=== PATIENT | male | born 1950 | race Caucasian/White ===

== ENCOUNTER 2018-05-15 21:29 | Emergency (ER) | payer OTHER ==
[2018-05-15 22:31] LABS: Absolute Lymphocytes (CBC) 1.3 K/uL (0.7-4.9); Absolute Monocytes 0.4 K/uL (0.1-1.3); Absolute Neutrophil 3.8 K/uL (1.8-8.0); Basophils % 0.7 % (0-1.3); Eosinophils % 3.7 % (0-4.4); Hematocrit 47.2 % (39.6-49.0); MPV 10.2 fL (7.6-11.3); Monocytes % 6.7 % (3.3-12.3); RBC Red Blood Cell Count 5.12 M/uL (4.33-5.43)
[2018-05-15 22:45] LABS: Protime INR 1.1
[2018-05-15 22:46] LABS: ALT/SGPT 29 U/L (12-78); AST/SGOT 19 U/L (15-37); Albumin 3.4 g/dL (3.4-5.0); Alkaline Phosphatase 121 U/L (45-117); BUN Blood Urea Nitrogen 11 mg/dL (7-18); Bicarbonate 30 mmol/L (21-32); Bilirubin Direct 0.2 mg/dL (0-0.2); Bilirubin Total 0.4 mg/dL (0.2-1.0); CKMB Creatine Kinase MB 1.6 ng/mL (0.3-3.6); Creatine Phosphokinase 137 U/L (39-308); Glucose Level 101 mg/dL (74-106); Lipase 94 U/L (73-393); Magnesium 2.3 mg/dL (1.8-2.4); NT PRO-BNP 32 pg/mL (<125); Potassium 3.7 mmol/L (3.5-5.1); Sodium Level 137 mmol/L (136-145); Troponin (Emerg Dept Use Only) < 0.02 ng/mL (0.0-0.045)
[2018-05-16 00:51] LABS: Urine Blood NEGATIVE (NEG); Urine Glucose NEGATIVE (NEG); Urine Protein NEGATIVE (NEG); Urine Specific Gravity 1.015 (1.005-1.030)
--- NOTE | 2018-05-16 01:02 | ER ---
Nurse's Notes [facility] Name: Ike Flowers Age: 67 yrs Sex: Male : 1950 Arrival Date: 05/15/2018 Time: 21:34 Bed 25 Private MD: Guru Arvizu E Diagnosis: Muscle weakness (generalized) Presentation: 05/15 21:55 Presenting complaint: Patient states: Feeling weakness in legs last 2 weeks and isn't tl2 walking as well. Had a fall today. c/o chronic back and knee pain. Transition of care: patient was not received from another setting of care. Onset of symptoms was May 03, 2018. Risk Assessment: Do you want to hurt yourself or someone else? Patient reports no desire to harm self or others. Initial Sepsis Screen: Does the patient meet any 2 criteria? No. Patient's initial sepsis screen is negative. Does the patient have a suspected source of infection? No. Patient's initial sepsis screen is negative. Care prior to arrival: None. 21:55 Method Of Arrival: Wheelchair tl2 21:55 Acuity: VALENTÍN 3 tl2 Triage Assessment: 21:56 General: Appears in no apparent distress. uncomfortable, Behavior is calm, cooperative, tl2 appropriate for age. Pain: Complains of pain in back, knees. Historical: - Allergies: 21:56 No Known Allergies; tl2 - Home Meds: 21:56 atorvastatin 80 mg Oral tab 1 tab once daily [Active]; gabapentin 800 mg Oral tab 1 tab tl2 3 times per day [Active]; losartan 50 mg Oral tab 1 tab once daily [Active]; primadone [Active]; - PMHx: 21:56 CVA; Hyperlipidemia; Hypertension; neuropathy; Parkinsons; tl2 - Immunization history:: Adult Immunizations up to date. - Social history:: Smoking status: Patient uses tobacco products, smokes one pack cigarettes per day. - Ebola Screening: : No symptoms or risks identified at this time. Screenin:57 Abuse screen: Denies threats or abuse. Nutritional screening: No deficits noted. tl2 Tuberculosis screening: No symptoms or risk factors identified. Fall Risk Fall in past 12 months (25 points). Assessment: 22:29 General: Appears in no apparent distress. Behavior is calm, cooperative. Pain: la1 Complains of pain in back. Neuro: Level of Consciousness is awake, alert, obeys commands, Oriented to person, place, time, situation. Cardiovascular: Capillary refill < 3 seconds Patient's skin is warm and dry. Respiratory: Airway is patent Respiratory effort is even, unlabored, Respiratory pattern is regular, symmetrical, Breath sounds are clear bilaterally. GI: No signs and/or symptoms were reported involving the gastrointestinal system. : No signs and/or symptoms were reported regarding the genitourinary system. Musculoskeletal: Reports Numbness/tingling mikie LE as an ongoing issue, reports frequent falls at home. 23:25 Reassessment: Patient appears in no apparent distress at this time. No changes from la1 previously documented assessment. Patient and/or family updated on plan of care and expected duration. Pain level reassessed. Vital Signs: 21:56 BP 110 / 74; Pulse 83; Resp 18; Temp 98.2; Pulse Ox 97% on R/A; Weight 77.11 kg; Height tl2 6 ft. 2 in. (187.96 cm); 23:31 BP 109 / 68; Pulse 75; Resp 18; Pulse Ox 96% on R/A; la1 21:56 Body Mass Index 21.83 (77.11 kg, 187.96 cm) tl2 ED Course: 21:34 Patient arrived in ED. es 21:35 Guru Arvizu MD is Private Physician. es 21:48 Mateo Lozada MD is Attending Physician. tw4 21:56 Triage completed. tl2 21:56 Arm band placed on right wrist. tl2 21:57 Patient has correct armband on for positive identification. Bed in low position. Call tl2 light in reach. Side rails up X 1. Adult w/ patient. 22:03 Donald Pinto, KERWIN is Primary Nurse. la1 22:24 XRAY Chest (1 view) In Process Unspecified. EDMS 22:30 No provider procedures requiring assistance completed. Inserted saline lock: 20 gauge la1 in left forearm, using aseptic technique. Blood collected. 22:50 CT Head Brain wo Cont In Process Unspecified. EDMS 03 00:59 Guru Arvizu MD is Referral Physician. tw4 01:07 IV discontinued, intact, bleeding controlled, No redness/swelling at site. Pressure la1 dressing applied. Administered Medications: No medications were administered Outcome: 01:01 Discharge ordered by . tw4 01:06 Discharged to home ambulatory. la1 01:06 Condition: stable 01:06 Discharge instructions given to patient, family, Instructed on discharge instructions, follow up and referral plans. Demonstrated understanding of instructions, follow-up care. 01:07 Patient left the ED. la1 Signatures: Dispatcher [employer] Alaina Garcia Lee RN RN la1 Esme Coyle RN RN tl2 Mateo Lozada, MD SIDHU tw4
--- NOTE | 2018-05-16 01:02 | EDPHYS ---
Physician Documentation [facility] Name: Ike Flowers Age: 67 yrs Sex: Male : 1950 Arrival Date: 05/15/2018 Time: 21:34 Bed 25 Private MD: Guru Arvizu E ED Physician Mateo Lozada HPI: 05/16 06:47 This 67 yrs old Male presents to ER via Wheelchair with complaints of tw4 FALLING,BACK PAIN,KNEE PAIN. 06:47 The patient presents with pain that is acute, and an injury. The symptoms are located tw4 in the low back. Onset: The symptoms/episode began/occurred today. The pain does not radiate. The problem was sustained during a fall, while standing. Severity of symptoms: At their worst the symptoms were moderate, in the emergency department the symptoms are unchanged. Historical: - Allergies: 05/15 21:56 No Known Allergies; tl2 - Home Meds: 21:56 atorvastatin 80 mg Oral tab 1 tab once daily [Active]; gabapentin 800 mg Oral tab 1 tab tl2 3 times per day [Active]; losartan 50 mg Oral tab 1 tab once daily [Active]; primadone [Active]; - PMHx: 21:56 CVA; Hyperlipidemia; Hypertension; neuropathy; Parkinsons; tl2 - Immunization history:: Adult Immunizations up to date. - Social history:: Smoking status: Patient uses tobacco products, smokes one pack cigarettes per day. - Ebola Screening: : No symptoms or risks identified at this time. ROS: 05/16 06:47 Constitutional: Negative for fever, chills, and weight loss, Eyes: Negative for injury, tw4 pain, redness, and discharge, Cardiovascular: Negative for chest pain, palpitations, and edema, Respiratory: Negative for shortness of breath, cough, wheezing, and pleuritic chest pain, Abdomen/GI: Negative for abdominal pain, nausea, vomiting, diarrhea, and constipation. MS/Extremity: Negative for injury and deformity, Skin: Negative for injury, rash, and discoloration, Neuro: Negative for headache, weakness, numbness, tingling, and seizure. Back: Positive for injury or acute deformity, pain at rest, Negative for decreased range of motion. Exam: 06:47 Constitutional: This is a well developed, well nourished patient who is awake, alert, tw4 and in no acute distress. Head/Face: Normocephalic, atraumatic. Chest/axilla: Normal chest wall appearance and motion. Nontender with no deformity. No lesions are appreciated. Cardiovascular: Regular rate and rhythm with a normal S1 and S2. No gallops, murmurs, or rubs. Normal PMI, no JVD. No pulse deficits. Respiratory: Lungs have equal breath sounds bilaterally, clear to auscultation and percussion. No rales, rhonchi or wheezes noted. No increased work of breathing, no retractions or nasal flaring. Abdomen/GI: Soft, non-tender, with normal bowel sounds. No distension or tympany. No guarding or rebound. No evidence of tenderness throughout. 06:47 MS/ Extremity: Pulses equal, no cyanosis. Neurovascular intact. Full, normal range of motion. Neuro: Awake and alert, GCS 15, oriented to person, place, time, and situation. Cranial nerves II-XII grossly intact. Motor strength 5/5 in all extremities. Sensory grossly intact. Cerebellar exam normal. Normal gait. 06:47 Back: pain, that is mild, ROM is normal. Vital Signs: 05/15 21:56 BP 110 / 74; Pulse 83; Resp 18; Temp 98.2; Pulse Ox 97% on R/A; Weight 77.11 kg; Height tl2 6 ft. 2 in. (187.96 cm); 23:31 BP 109 / 68; Pulse 75; Resp 18; Pulse Ox 96% on R/A; la1 21:56 Body Mass Index 21.83 (77.11 kg, 187.96 cm) tl2 MDM: 21:48 Patient medically screened. tw4 05/16 06:47 Data reviewed: vital signs, nurses notes. Counseling: I had a detailed discussion with tw4 the patient and/or guardian regarding: the historical points, exam findings, and any diagnostic results supporting the discharge/admit diagnosis, lab results. Special discussion: I discussed with the patient/guardian in detail that at this point there is no indication for admission to the hospital. It is understood, however, that if the symptoms persist or worsen the patient needs to return immediately for re-evaluation. 06:47 Differential diagnosis: Abdominal Aortic Aneurysm arthritis, Ligament Injury tw4 Pyelonephritis. Data interpreted: Pulse oximetry: Interpretation: normal. 05/15 21:57 Order name: Basic Metabolic Panel tw4 05/15 21:57 Order name: CBC with Diff tw4 05/15 21:57 Order name: LFT's tw4 05/15 21:57 Order name: Magnesium tw4 05/15 21:57 Order name: NT PRO-BNP tw4 05/15 21:57 Order name: PT-INR tw4 05/15 21:57 Order name: Troponin (emerg Dept Use Only) tw4 05/15 21:57 Order name: Basic Metabolic Panel tw05/15 21:57 Order name: CBC with Diff tw4 05/15 21:57 Order name: Ckmb tw4 05/15 21:57 Order name: CPK 05/15 21:57 Order name: Hepatic Function 05/15 21:57 Order name: Lipase tw05/15 21:57 Order name: Ptt, Activated tw05/15 21:57 Order name: XRAY Chest (1 view) 05/15 21:57 Order name: Cardiac monitoring; Complete Time: 22:36 05/15 21:57 Order name: EKG - Nurse/Tech; Complete Time: 22:36 05/15 21:57 Order name: IV Saline Lock; Complete Time: 22:37 05/15 21:57 Order name: Labs collected and sent; Complete Time: 22:37 05/15 21:57 Order name: O2 Per Protocol; Complete Time: 22:37 05/15 21:57 Order name: O2 Sat Monitoring; Complete Time: 22:37 05/15 21:57 Order name: CT Head Brain wo Cont 05/15 21:57 Order name: NPO; Complete Time: 22:36 05/15 21:57 Order name: Urine Dipstick-Ancillary (obtain specimen); Complete Time: 00:07 05/16 00:10 Order name: Urine Dipstick--Ancillary (enter results) ar5 EC:47 Rate is 74 beats/min. Rhythm is regular. QRS [place] is Normal. IN interval is normal. QRS tw4 interval is normal. No Q waves. T waves are Normal. No ST changes noted. Clinical impression: Normal ECG. Interpreted by me. Reviewed by me. Administered Medications: No medications were administered Disposition: 05/16/18 01:01 Discharged to Home. Impression: Muscle weakness (generalized). - Condition is Stable. - Discharge Instructions: Weakness. - Medication Reconciliation Form, Thank You Letter, Antibiotic Education, Prescription Opioid Use form. - Follow up: Guru Arvizu MD; When: Upon discharge from the Emergency Department; Reason: If symptoms return, Recheck today's complaints, Continuance of care. - Problem is chronic. - Symptoms have improved. Signatures: Dispatcher [employer] EDMS Donald Pinto RN RN la1 Esme Coyle RN RN tl2 Mateo Lozada MD MD tw4 Corrections: (The following items were deleted from the chart) 01:07 01:01 05/16/2018 01:01 Discharged to Home. Impression: Muscle weakness (generalized). la1 Condition is Stable. Forms are Medication Reconciliation Form, Thank You Letter, Antibiotic Education, Prescription Opioid Use. Follow up: Guru Arvizu; When: Upon discharge from the Emergency Department; Reason: If symptoms return, Recheck today's complaints, Continuance of care. Problem is chronic. Symptoms have improved. tw4
--- NOTE | 2018-05-16 11:39 | RAD REPORT ---
EXAM DESCRIPTION: RAD - Chest Single View - 05/15/2018 10:25 pm CLINICAL HISTORY: weakness Chest pain. COMPARISON: No comparisons FINDINGS: Portable technique limits examination quality. The lungs are emphysematous but grossly clear. The heart is normal in size. No displaced fractures. IMPRESSION: COPD.
--- NOTE | 2018-05-17 11:49 | RAD REPORT ---
EXAM DESCRIPTION: Head Brain Wo Cont CLINICAL HISTORY: 67 years Male WEAKNESS COMPARISON: None TECHNIQUE: Contiguous axial images of the brain were obtained without the administration of intraven ous contrast.This exam was performed according to our departmental dose-optimization program which in cludes use of Automated Exposure Control, adjustment of the mA and/or kV according to patient size an d/or use of iterative reconstruction technique. FINDINGS: Brain: No acute intracranial hemorrhage. No extra-axial collection. No mass effect or elieser iation. Confluent periventricular and subcortical white matter hypodensity is noted. Ventricles: No hydrocephalus. Globes and orbits: No acute abnormality. Bones: No acute osseous finding. Pneumatized anterior clinoids. Paranasal sinuses: Paranasal sinuses are clear.. Mastoid air cells: Prior left mastectomy with soft tissue density. Partially pneumatized right mastoi d air cells.. Soft tissues: Within normal limits Manager Fashion view shows no additional significant finding IMPRESSION: No acute intracranial abnormality. Chronic small vessel ischemic changes. If persistent clinical concern for acute ischemia, consider MR I brain without contrast for further evaluation. Electronically signed by: Mike Barrientos DO 05/15/2018 10:57 PM [employer] Due to temporary technical issues with the PACS/Fluency reporting system, reports are being signed by the in house radiologist as a courtesy to ensure prompt reporting. The interpreting radiologist is f ully responsible for the content of the report.
== END 2018-05-16 01:07 | disposition home or self-care (01) ==
LOC: ER 21:29
DX: M62.81 Muscle weakness (generalized) (principal); F17.210 Nicotine dependence, cigarettes, uncomplicated; W18.39XA Other fall on same level, initial encounter; Y93.89 Activity, other specified; Y92.9 Unspecified place or not applicable; Z86.73 Personal history of transient ischemic attack (TIA), and cerebral infarction without residual deficits; I10 Essential (primary) hypertension; E78.5 Hyperlipidemia, unspecified; G20 Parkinson's disease
CPT/HCPCS: 36415; 70450; 71045; 80048; 80076; 81003; 82550; 82553; 83690; 83735; 83880; 84484; 85025; 85610; 85730; 99283